=== PATIENT | female | born 1955 | race Caucasian/White ===

== ENCOUNTER 2022-08-15 14:20 | Outpatient (CLI) | payer MEDICARE, BC, SELFPAY | END 2022-08-15 14:21 | disposition home or self-care (01) | LOC: AMB 20:30 | PROVIDERS: Visit Provider Family Medicine | DX: S09.90XA Unspecified injury of head, initial encounter (principal); Y93.23 Activity, snow (alpine) (downhill) skiing, snowboarding, sledding, tobogganing and snow tubing; Y92.9 Unspecified place or not applicable | CPT/HCPCS: A0425; A0433 ==

== ENCOUNTER 2024-03-10 13:00 | Outpatient (RCR) | payer BC, SELFPAY | END 2024-04-07 15:42 | disposition home or self-care (01) | PROVIDERS: Visit Provider Family Medicine | DX: M25.512 Pain in left shoulder (principal); G89.29 Other chronic pain; Z51.89 Encounter for other specified aftercare | CPT/HCPCS: 97110; 97140; 97161 ==

== ENCOUNTER 2024-12-14 17:13 | Outpatient (CLI) | payer MEDICARE, BC, SELFPAY ==
--- NOTE | 2024-12-14 17:30 | CRLHL7_ITS ---
For Patients: As a result of the Cures Act, medical imaging exams and procedure reports are released immediately into your electronic medical record. You may view this report before your referring provider. If you have questions, please contact your health care provider. BILATERAL BREAST MRI WITHOUT GADOLINIUM FOR IMPLANT EVALUATION CLINICAL HISTORY: History of treated RIGHT breast cancer (mastectomy). BILATERAL mastectomy with implant reconstruction. INDICATION FOR BREAST MRI: Evaluate for breast silicone implant rupture. COMPARISON STUDIES: Breast MRI 02/03/2014. TECHNIQUE: The patient was positioned prone using a breast coil. Imaging sequences were obtained using 1-1.5 mm thick slices with no gap. T2-weighted and silicone selective sequences in axial and sagittal planes were obtained for implant evaluation. BILATERAL BREAST MRI FINDINGS: There are postsurgical changes of BILATERAL mastectomy with implant reconstruction. The implants are intact. No evidence of intracapsular or extracapsular rupture. IMPRESSIONS AND RECOMMENDATIONS: No evidence of silicone implant intracapsular rupture or extracapsular extravasation. Clinical follow-up is recommended. ACR not applicable Dictated by Clementina Hurt MD @ 12/19/2024 10:13:59 AM jj/Dictated by: Clementina Hurt MD @ 12/19/2024 10:16:00 AM (Electronically Signed)
== END 2024-12-14 17:14 | disposition home or self-care (01) ==
LOC: MRI 17:14
PROVIDERS: Visit Provider Plastic Surgery
DX: Z90.13 Acquired absence of bilateral breasts and nipples (principal); T85.41XA Breakdown (mechanical) of breast prosthesis and implant, initial encounter; Z80.3 Family history of malignant neoplasm of breast; N39.46 Mixed incontinence; Z51.89 Encounter for other specified aftercare
CPT/HCPCS: 77047

== ENCOUNTER 2025-03-08 10:45 | Outpatient (RCR) | payer MEDICARE, BC, SELFPAY | END 2025-04-06 14:43 | disposition home or self-care (01) | PROVIDERS: Visit Provider Family Medicine | DX: N39.46 Mixed incontinence (principal); Z51.89 Encounter for other specified aftercare | CPT/HCPCS: 97110; 97161; 97530 ==